=== PATIENT | female | born 1960 | race Caucasian/White ===

== ENCOUNTER 2017-08-21 11:46 | Outpatient (CLI) | END 2017-08-21 11:47 | disposition home or self-care (01) | LOC: FCC-LAB 11:46 | PROVIDERS: ATTEND Family Medicine | DX: E11.9 Type 2 diabetes mellitus without complications (principal) | CPT/HCPCS: 36415; 82043; 83036 ==

== ENCOUNTER 2017-12-18 09:11 | Outpatient (CLI) | END 2017-12-18 09:12 | disposition home or self-care (01) | LOC: FCC-LAB 09:11 | PROVIDERS: ATTEND Family Medicine | DX: N30.90 Cystitis, unspecified without hematuria (principal) | CPT/HCPCS: 87086 ==